=== PATIENT | female | born 1965 | race Caucasian/White ===

== ENCOUNTER → 2020-04-01 | Outpatient (CLI) | payer OTHER ==
[~2020-04-01] MED LIST: ALPR0.5T72 PO; CYCL10TA9 PO
--- NOTE | 2020-04-01 16:10 | Diagnostic Imaging Report ---
PROCEDURE: CT sinuses without contrast TECHNIQUE: Multiple contiguous axial images were obtained through the sinuses without the use of intravenous contrast. Coronal and sagittal reformations were then performed. Auto Exposure Controls were utilized during the CT exam to meet ALARA standards for radiation dose reduction. INDICATION: Chronic sinusitis. COMPARISON: None. FINDINGS: Mild mucosal thickening in the ethmoid sinuses and left maxillary sinus. The ostiomeatal units and frontal recesses are patent. The nasal septum is intact. No large sylvain bullosa. The mastoids and middle ears are clear. Normal alignment of the temporomandibular joints. IMPRESSION: Mild mucosal thickening in the left ethmoid and maxillary sinuses. The paranasal sinuses are otherwise clear. Dictated by: Dictated on workstation # [id number]
== END ==
LOC: RAD 14:45
PROVIDERS: ATTEND Otolaryngology Otolaryngology/Facial Plastic Surgery
DX: J32.0 Chronic maxillary sinusitis (principal); J32.2 Chronic ethmoidal sinusitis
CPT/HCPCS: 70486

== ENCOUNTER → 2020-11-15 | Outpatient (CLI) | payer OTHER ==
--- NOTE | 2020-11-15 17:56 | Diagnostic Imaging Report ---
PROCEDURE: MR imaging cervical spine without contrast. TECHNIQUE: Multiplanar, multisequence MR imaging of the cervical spine was performed without contrast. INDICATION: Neck pain. COMPARISON: None available. FINDINGS: Cervical lordosis is preserved. No spondylolisthesis. No fracture or marrow replacing process. No features of active facet synovitis. Craniocervical junction is unremarkable. No abnormal T2 hyperintense signal within the cervical cord. Additionally, the cervical cord remains normal in size. No epidural fluid collection. Paravertebral musculature is normal in appearance. No cervical lymphadenopathy. C2-C3: No spinal canal or foraminal narrowing. C3-C4: No spinal canal or foraminal narrowing. C4-C5: Uncovertebral joint hypertrophy causes mild bilateral foraminal narrowing. No spinal stenosis. C5-C6: Broad-based disc protrusion completely effaces the ventral thecal sac causing moderate to severe spinal stenosis. Uncovertebral joint hypertrophy causes severe bilateral neuroforaminal narrowing. C6-C7: Central disc protrusion partially effaces ventral thecal sac and causes moderate spinal stenosis in conjunction with ligamentum flavum hypertrophy. Mild left neuroforaminal narrowing due to uncovertebral joint hypertrophy. C7-T1: No spinal canal or foraminal narrowing. IMPRESSION: 1. Broad-based disc protrusion at C5-C6 causes moderate to severe spinal stenosis. Additionally, there is severe bilateral foraminal narrowing at this level due to uncovertebral joint hypertrophy. 2. No abnormal signal within the cord to indicate edema or myelomalacia. Dictated by: Dictated on workstation # [id number]
== END ==
LOC: RAD 14:45
PROVIDERS: ATTEND Nurse Practitioner
DX: M50.222 Other cervical disc displacement at C5-C6 level (principal); M48.02 Spinal stenosis, cervical region
CPT/HCPCS: 72141